=== PATIENT | female | born 1945 | race Caucasian/White ===

== ENCOUNTER → 2021-02-06 | Outpatient (CLI) | payer MEDICARE | END | disposition home or self-care (01) | LOC: LAB SHORT 13:50 | DX: R30.0 Dysuria (principal) | CPT/HCPCS: 87086 ==

== ENCOUNTER 2021-03-14 20:08 | Inpatient (IN) | payer MEDICARE ==
[~2021-03-14] VITALS: Ht 149.9 cm; Wt 51.9 kg
[2021-03-14 20:43] LABS: PCO2 Arterial 60.4 mmHg (35-45); PO2 Arterial 494 mmHg (80-100); pH Blood Arterial 6.82 (7.35-7.45)
[2021-03-14 20:43] LABS: Hematocrit 33.5 % (33.0-51.0); Hemoglobin 9.5 g/dL (11.5-16.0); Mean Corpuscular HGB 30.1 pg (26.0-34.0); Mean Corpuscular HGB Conc 28.4 g/dL (31.5-36.5); Mean Corpuscular Volume 106 fL (80-100); Mean Platelet Volume 11.1 fL (9.1-12.4); Platelet Count 168 K/mm3 (150-400); RDW Coefficient Variation 14.1 % (11.7-14.2); RDW Standard Deviation 55.2 fL (35.1-46.3); Red Blood Cell Count 3.16 M/mm3 (3.80-5.20); White Blood Cell Count 9.13 K/mm3 (4.00-11.30)
[2021-03-14] MEDS ORDERED: LOSARTAN POTASS25 M2 PO (20:56)
[2021-03-14] MEDS ORDERED: VERAPAMIL ER120 M1 PO (20:56)
[2021-03-14] MEDS ORDERED: SPIRONOLACTONE25 MG PO (20:57)
[2021-03-14] MEDS ORDERED: KLOR-CON 1010 ME3 PO (20:57)
[2021-03-14] MEDS ORDERED: ZOLOFT50 MG PO (20:57)
[2021-03-14] MEDS ORDERED: Ventolin/Prove6.7 GM INH (20:57)
[2021-03-14] MEDS ORDERED: XARELTO20 M1 PO (20:58)
[2021-03-14] MEDS ORDERED: FLUTICASONE-SA1 EAC9 INH (20:58)
[2021-03-14] MEDS ORDERED: EUTHYROX75 MC1 PO (20:58)
[2021-03-14 21:00] LABS: Alanine Aminotransfer (ALT/SGP 55 U/L (12-78); Albumin, Blood 2.5 g/dL (3.4-5.0); Alk Phos 74 U/L (50-136); Anion Gap 20 mmol/L (6-16); Aspartate Aminotrans (AST/SGOT 54 U/L (12-37); Bilirubin, Total 0.3 mg/dL (0.1-1.0); Blood Urea Nitrogen 17 mg/dL (8-24); Bun/Creatinine Ratio 20.6 (12.0-20.0); CO2, Blood 16 mmol/L (21-32); Chloride, Blood 102 mmol/L (98-108); Creatinine, Blood 0.83 mg/dL (0.40-1.00); Globulin, Blood 2.5 g/dL (2.2-4.0); Glomerular Filtration Rate >60 (60-); Glucose, Blood 349 mg/dL (70-99); Potassium, Blood 4.4 mmol/L (3.5-5.5); Sodium, Blood 138 mmol/L (136-145); Troponin I 0.027 ng/mL (0.000-0.040)
[2021-03-14 21:03] LABS: BAND PERCENT MAN 5 % (0-8); BASOPHILS PERCENT MAN 0 % (0-2); EOSINOPHILS ABSOLUTE MAN 0.18 K/mm3 (0.00-0.68); EOSINOPHILS PERCENT MAN 2 % (0-6); LYMPHOCYTES % ATYPICAL MANUAL 4 % (0-0); LYMPHOCYTES ABSOLUTE MAN 3.65 K/mm3 (0.84-5.20); LYMPHOCYTES PERCENT MAN 36 % (21-46); METAMYELOCYTE ABSOLUTE MAN 0.45 K/mm3 (0.00-0.00); METAMYELOCYTE PERCENT MAN 5 % (0-0); MONOCYTES ABSOLUTE MAN 0.18 K/mm3 (0.16-1.47); MONOCYTES PERCENT MAN 2 % (4-13); MYELOCYTE ABSOLUTE MAN 0.45 K/mm3 (0.00-0.00); MYELOCYTE PERCENT MAN 5 % (0-0); NEUTROPHILS ABSOLUTE MAN 4.19 K/mm3 (1.96-9.15); SEG NEUTROPHILS PERCENT MAN 41 % (41-73); TOTAL CELLS COUNTED 100
[2021-03-14 21:42] LABS: SARS-Cov-2 (COVID-19) PCR, MMC NEGATIVE (NEGATIVE)
[2021-03-14 21:56] LABS: Free Thyroxine 0.61 ng/dL (0.70-1.60)
[2021-03-14 22:30] LABS: C-REACTIVE PROTEIN, EXT RANGE <0.290 mg/dL (0.000-0.300)
[2021-03-14 23:59] LABS: PCO2 Arterial 47.6 mmHg (35-45); PO2 Arterial 203 mmHg (80-100)
[2021-03-15 02:38] LABS: Mean Corpuscular HGB 30.1 pg (26.0-34.0); Mean Corpuscular HGB Conc 29.7 g/dL (31.5-36.5); Mean Platelet Volume 10.2 fL (9.1-12.4); NRBC ABSOLUTE 0.02 K/mm3 (0.00-0.02); NRBC Auto 0.1 /100 WBC (0.0-0.2); Platelet Count 125 K/mm3 (150-400); RDW Coefficient Variation 14.4 % (11.7-14.2); RDW Standard Deviation 52.2 fL (35.1-46.3); Red Blood Cell Count 1.53 M/mm3 (3.80-5.20); White Blood Cell Count 14.25 K/mm3 (4.00-11.30)
[2021-03-15 02:40] LABS: Base Excess Venous -8.7 mmol/L; Bicarbonate Venous 17.9 mmol/L (24.0-30.0); PCO2 Venous 50.6 mmHg (38-42); PO2 Venous 86.9 mmHg (38-42); pH Blood Venous 7.19 (7.34-7.37)
[2021-03-15 02:44] LABS: Mean Corpuscular Volume 101 fL (80-100)
[2021-03-15 02:47] LABS: Hematocrit 15.5 % (33.0-51.0); Hemoglobin 4.6 g/dL (11.5-16.0)
[2021-03-15 02:56] LABS: Magnesium, Blood 1.9 mg/dL (1.6-2.4); Troponin I 0.179 ng/mL (0.000-0.040)
[2021-03-15 03:16] LABS: Albumin, Blood 1.3 g/dL (3.4-5.0); Bilirubin, Total 0.3 mg/dL (0.1-1.0); Bun/Creatinine Ratio 17.8 (12.0-20.0); Creatinine, Blood 1.01 mg/dL (0.40-1.00); Globulin, Blood 1.3 g/dL (2.2-4.0); Phosphorus, Blood 4.4 mg/dL (2.5-4.9); Potassium, Blood 3.9 mmol/L (3.5-5.5)
[2021-03-15 03:16] LABS: Base Excess Venous -7.1 mmol/L; Bicarbonate Venous 18.8 mmol/L (24.0-30.0); PCO2 Venous 47.1 mmHg (38-42); PO2 Venous 36.7 mmHg (38-42)
[2021-03-15 03:17] LABS: pH Blood Venous 7.24 (7.34-7.37)
[2021-03-15 03:43] LABS: BAND PERCENT MAN 15 % (0-8); BASOPHILS PERCENT MAN 0 % (0-2); EOSINOPHILS PERCENT MAN 0 % (0-6); LYMPHOCYTES ABSOLUTE MAN 0.42 K/mm3 (0.84-5.20); LYMPHOCYTES PERCENT MAN 3 % (21-46); MONOCYTES ABSOLUTE MAN 0.57 K/mm3 (0.16-1.47); MONOCYTES PERCENT MAN 4 % (4-13); MYELOCYTE ABSOLUTE MAN 0.28 K/mm3 (0.00-0.00); MYELOCYTE PERCENT MAN 2 % (0-0); NEUTROPHILS ABSOLUTE MAN 12.96 K/mm3 (1.96-9.15); SEG NEUTROPHILS PERCENT MAN 76 % (41-73); TOTAL CELLS COUNTED 100
[2021-03-15 03:59] LABS: Calcium, Blood 5.3 mg/dL (8.5-10.1); Total Protein, Blood 2.6 g/dL (6.4-8.2)
--- NOTE | 2021-03-15 05:42 | NUR ---
SUMMARY: PT ARRIVED TO UNIT AT 2340, SHE WAS UNRESPONSIVE, INTUBATED, PLACED ON THE VENTILATOR AC 24/320/5/45%. EFFORTS TO GET A BLOOD PRESSURE OR SPO2 READING WERE UNSUCCESSFUL. PT ON TODD-SYNEPHRINE @ 300MCG/MIN, ADDED VASOPRESSIN @ 0.04 U/MIN, THEN ADDED LEVOPHED @ 6MCG/MIN-TITRATING UP TO 20MCG/MIN. NAHCO3 @ 150 ML/HR, DEEPAK HGGR APPLIED TO PATIENT CORE TEMP READING AT 93.5, SINUS TACH, PT'S BROTHER ARRIVED, AWARE OF THE SITUATION, PT BEGAN AROUSING AND NODDING TO STAFF, MEDICATED FOR PAIN. PROPOFOL GTT STARTED FOR COMFORT, 0130-PT'S EYES NOTED TO BE DILATED AND UNRESPONSIVE TO LIGHT. PROPOFOL GTT TURNED OFF. UNABLE TO OBTAIN BP OR BIOX, STILL. 0200-PT BEGINS RESPONDING TO VOICE. 0300-LABS OBTAINED, RESULTS QUESTIONED. PT REDRAWN. NOTIFIED OF RESULTS, ORDERS RECEIVED. 2L NS STARTED, 2U PRBC'S STARTED, PT WITH A BLOOD PRESSURE APPROX. 0400. PT CONTINUES WITH TEMPERATURE RISING, BLOOD PRESSURES, BEGINNING TO MOVE SELF A BIT. WRISTS RESTRAINED FOR SAFETY OF TUBES,LINES. BROTHER REMAINS IN ROOM. CURRENTLY, VENT SETTINGS UNCHANGED, NEOSYNEPHRINE @ 200MCG/MIN, LEVO @ 20 MCG/MIN, VASO @ 0.04 U/MIN, PROPOFOL @ 10 MCG/KG/MIN, 2ND UNIT OF BLOOD TRANSFUSING, WILL RESTART THE 2L NS BOLUSES WHEN BLOOD FINISHED. PT'S ABDOMEN HAS BEEN THE SIZE OF A SMALL BASKETBALL FROM THE START OF ADMISSION, IT HAS CONTINUED T/O SHIFT TO REMAIN HARD AND TIGHT. PHONE CALL WAS MADE TO ABOUT THE INCREASING SIZE OF THE ABDOMEN, ORDER RECEIVED FOR 1V ABD. WILL CONTINUE TO ASSESS.
--- NOTE | 2021-03-15 07:53 | NUR ---
PTS' AT BEDSIDE, INFORMED BY PT'S THAT PT IS IN PAIN. PT WIDE AWAKE AND GRIMACING. NODS HEAD YES TO PAIN. PRIMARY RN INFORMED. PROPOFOL INCREASED FROM 10MCG TO 30 MAP 85. FENT 50MCG GIVEN.
[2021-03-15 09:49] LABS: PCO2 Arterial 40.6 mmHg (35-45); PO2 Arterial 187 mmHg (80-100); pH Blood Arterial 7.28 (7.35-7.45)
[2021-03-15 10:25] LABS: BASOPHILS ABSOLUTE AUTO 0.12 K/mm3 (0.00-0.23); BASOPHILS PERCENT AUTO 0 % (0-2); EOSINOPHILS ABSOLUTE AUTO 0.02 K/mm3 (0.00-0.68); EOSINOPHILS PERCENT AUTO 0 % (0-6); Hematocrit 26.5 % (33.0-51.0); Hemoglobin 8.7 g/dL (11.5-16.0); IMMATURE GRAN PERCENT AUTO 7 % (0-1); LYMPHOCYTES ABSOLUTE AUTO 1.85 K/mm3 (0.84-5.20); LYMPHOCYTES PERCENT AUTO 6 % (21-46); MONOCYTES ABSOLUTE AUTO 1.51 K/mm3 (0.16-1.47); MONOCYTES PERCENT AUTO 5 % (4-13); Mean Corpuscular HGB Conc 32.8 g/dL (31.5-36.5); Mean Corpuscular Volume 94 fL (80-100); Mean Platelet Volume 11.1 fL (9.1-12.4); NEUTROPHILS ABSOLUTE AUTO 24.03 K/mm3 (1.96-9.15); NEUTROPHILS PERCENT AUTO 81 % (41-73); NRBC ABSOLUTE 0.16 K/mm3 (0.00-0.02); NRBC Auto 0.5 /100 WBC (0.0-0.2); Platelet Count 108 K/mm3 (150-400); RDW Coefficient Variation 14.7 % (11.7-14.2); RDW Standard Deviation 50.5 fL (35.1-46.3); Red Blood Cell Count 2.81 M/mm3 (3.80-5.20); White Blood Cell Count 29.73 K/mm3 (4.00-11.30)
[2021-03-15 10:29] LABS: BAND PERCENT MAN 11 % (0-8); BASOPHILS PERCENT MAN 0 % (0-2); EOSINOPHILS PERCENT MAN 0 % (0-6); LYMPHOCYTES ABSOLUTE MAN 1.48 K/mm3 (0.84-5.20); LYMPHOCYTES PERCENT MAN 5 % (21-46); METAMYELOCYTE ABSOLUTE MAN 0.59 K/mm3 (0.00-0.00); METAMYELOCYTE PERCENT MAN 2 % (0-0); MONOCYTES ABSOLUTE MAN 1.48 K/mm3 (0.16-1.47); MONOCYTES PERCENT MAN 5 % (4-13); MYELOCYTE ABSOLUTE MAN 2.08 K/mm3 (0.00-0.00); MYELOCYTE PERCENT MAN 7 % (0-0); NEUTROPHILS ABSOLUTE MAN 24.08 K/mm3 (1.96-9.15); SEG NEUTROPHILS PERCENT MAN 70 % (41-73); TOTAL CELLS COUNTED 100
[2021-03-15 10:32] LABS: Magnesium, Blood 1.8 mg/dL (1.6-2.4); Troponin I 0.351 ng/mL (0.000-0.040)
[2021-03-15 10:36] LABS: Albumin, Blood 1.4 g/dL (3.4-5.0); Albumin/Globulin Ratio 0.9 (0.8-1.8); Bilirubin, Total 0.6 mg/dL (0.1-1.0); Bun/Creatinine Ratio 16.4 (12.0-20.0); Calcium, Blood 6.9 mg/dL (8.5-10.1); Creatinine, Blood 1.22 mg/dL (0.40-1.00); Globulin, Blood 1.6 g/dL (2.2-4.0); Potassium, Blood 3.7 mmol/L (3.5-5.5)
[2021-03-15 10:49] LABS: PCO2 Arterial 41.5 mmHg (35-45); PO2 Arterial 165 mmHg (80-100)
[2021-03-15 10:50] LABS: pH Blood Arterial 7.26 (7.35-7.45)
[2021-03-15 10:58] LABS: International Normalized Ratio 2.3; Prothrombin Time Results 23.7 Sec (9.7-11.5)
--- NOTE | 2021-03-15 11:12 | NUR ---
pt critical kps score is 20%. pt on multipressors, blood products, and and on ventilatior support. intesivist, interventioonal radiologist and nursing at bedside. plan is to take to laboratory aide. Pt lives with hes brother her son is here [facility]. Careful discussion with son her son regarding levels of care. Her son has had brain surgery and is fatigued and distraugh. His wishes are to combination machine tender her a chance and not to withhold care. Supportive discussion on not discriminated on age and respecting wishes. We also discussed prognosis and suffering. We settled on try the intervention and some care marylu if she has a lethal rythm no cpr and make her comfortable. pt son assited with getting a hotel room and support. prognosis very poor pt will need expensive correction care if she survives event will update health care marketing manager team.
--- NOTE | 2021-03-15 11:55 | NUR ---
Spiritual care visit conducted. Patient's son, Sandeep, is bedside and talks about his own brain surgery and his struggle to remember and process information, he also explains about the family unit complications and his desire to not cause undue harm or suffering to his mother. He wants all reasonable efforts made to help his mother and then to "let her go" if there is little or no hope of recovery. Sandeep talks about their belief in God but admits that the patient is not a very caodaism person. I reinforce helpful attitudes and practices and provide companionship, therapeutic listening and prayer. I will continue to remain available to patient and family.
[2021-03-15 12:37] LABS: Calcium, Blood 7.1 mg/dL (8.5-10.1); Magnesium, Blood 1.8 mg/dL (1.6-2.4)
[2021-03-15 15:08] LABS: PCO2 Arterial 48.8 mmHg (35-45); PO2 Arterial 128 mmHg (80-100); pH Blood Arterial 7.31 (7.35-7.45)
--- NOTE | 2021-03-15 15:43 | NUR ---
RESOURCE MANAGEMENT SPECIALIST/GENERAL MERCHANDISE MANAGER REFERRAL - ADMIT: 03/14/21 DISCHARGE: DX: ACUTE RESPIRATORY FAILURE CC: KWILCOX CALLUM CALL: RESIDENCE: HOME CAREGIVER: LUCIEN DUBON ([place]) HOME PHONE: DX: VALVE DISEASE, COPD, AFIB, PULMONARY EMPHYSEMA, SEE LIST DME: NONE CCM: NONE HOME HEALTH: NONE SUMMARY: 03/15/21- PER CHART REVIEW WITH DR. WARD, NO D/C PLAN. PT HAD CENTRAL LINE PLACED YESTERDAY. PT CAME IN RESPONSIVE AND INTUBATED ON VENT. PALLITIVE CARE SPOKE WITH PT'S SON, WHO IS HERE FROM [place]. DISCUSSED CARE OPTIONS AND SON WOULD LIKE TO GIVE HER A CHANCE AND TO CONTINUE CARE BUT NOT TO CAUSE UNDUE HARM OR SUFFERING. SON WAS INFORMED THAT PROGNOSIS IS POOR. ADMIT: 03/14/21
[2021-03-15 15:45] LABS: Albumin, Blood 1.7 g/dL (3.4-5.0); Albumin/Globulin Ratio 0.9 (0.8-1.8); Bilirubin, Total 0.8 mg/dL (0.1-1.0); Calcium, Blood 6.1 mg/dL (8.5-10.1); Creatinine, Blood 1.05 mg/dL (0.40-1.00); Globulin, Blood 1.9 g/dL (2.2-4.0); Total Protein, Blood 3.6 g/dL (6.4-8.2); Troponin I 0.377 ng/mL (0.000-0.040)
[2021-03-15 15:52] LABS: Hemoglobin 10.4 g/dL (11.5-16.0); Mean Corpuscular HGB 29.5 pg (26.0-34.0); Mean Corpuscular HGB Conc 33.5 g/dL (31.5-36.5); Mean Platelet Volume 10.8 fL (9.1-12.4); NRBC ABSOLUTE 0.02 K/mm3 (0.00-0.02); NRBC Auto 0.2 /100 WBC (0.0-0.2); Platelet Count 54 K/mm3 (150-400); RDW Coefficient Variation 15.2 % (11.7-14.2); RDW Standard Deviation 48.3 fL (35.1-46.3); Red Blood Cell Count 3.53 M/mm3 (3.80-5.20)
[2021-03-15 15:54] LABS: Mean Corpuscular Volume 88 fL (80-100)
[2021-03-15 16:18] LABS: BAND PERCENT MAN 28 % (0-8); BASOPHILS PERCENT MAN 0 % (0-2); EOSINOPHILS PERCENT MAN 0 % (0-6); LYMPHOCYTES PERCENT MAN 7 % (21-46); METAMYELOCYTE PERCENT MAN 19 % (0-0); MONOCYTES PERCENT MAN 1 % (4-13); MYELOCYTE PERCENT MAN 3 % (0-0); SEG NEUTROPHILS PERCENT MAN 42 % (41-73); TOTAL CELLS COUNTED 100
--- NOTE | 2021-03-15 18:35 | NUR ---
ASSUMPTION OF CARE AND SHIFT SUMMARY ASSUMED CARE OF PT @ APPROX 0650, PT INTUBATED AND ON LOW SEDATION. PUPILS DILATED AND FIXED, LUNG SOUNDS COARSE, UNABLE TO OBTAIN SPO2, ATTEMPTED ON ALL EXTREMETIES AND FOREHEAD, FACIAL EDEMA NOTED WITH SIGNIFICANTLY SWOLLEN TONGUE- PROTRUDING FROM MOUTH. SCLERAL EDEMA NOTED. PULSES BY DOPPLER, LEVOPHED, VASOPRESSIN AND NEOSYNEPHRINE INFUSING TO MAINTAIN MAPS- SEE FLOWSHEET FOR ASSUMPTION OF CARE RATES. AT APPROX 0800, LEAKING NOTED FROM CENTRAL LINE SITE, DRESSING TAKEN DOWN AND CATHETER OUT APPROX 6cm. ALL GTT'S STOPPED, LEVO RAN VIA PERIPHERAL IV, DR FARAH NOTIFIED AND EN ROUTE, ED RN'S TO ROOM FOR IO PLACEMENT. UNABLE TO GET NON-INVASIVE BLOOD PRESSURES. DR FARAH TO ROOM @ APPROX 0845, R GROIN CL AND ARTLINE PLACED, PT HYPOTENSIVE, PRESSORS TITRATED TO MAINTAIN MAPS, 1MG EPI PUSH ORDERED AND ADMINISTERED @ 0924, EPI GTT ORDERED. ABG COMPLETED. INTRA ABDOMINAL PRESSURE OF 30, DR FARAH COSULTED SURGERY. AT APPROX 0930, RADIOLOGY CT READING RESULTED, DR FARAH CONSULTED DR MARQUES WITH IR, MASS TRANSFUSION PROTOCOL INITIATED, SEE TRANSFUSION FLOWSHEET. PT COUGHING VENT, 20mg ROCURONIUM ADMINISTERED @ 1002 [address] FARAH AND NIMBEX ORDERED. PT TO EMPLOYEE COUNSELOR @ APPROX 1115. PT RETURNED FROM EMPLOYEE COUNSELOR @ APPROX 1500. TEMP PROBE MOLINA READING 91 DEGREES, AZIZA HUGGER PLACED ON PT. REPEAT LABS COMPLETED, SEE NEW ORDERS FOR CALCIUM GLUCONATE, POTASSIUM CHLORIDE, LASIX. REPEAT ABD PRESSURE OF 26. DR FARAH NOTIFIED OF MISSED ZOSYN DOSE, NO NEW ORDERS. PTS CURRENT CONDITION: PT REMAINS INTUBATED, SEDATED AND PARALYZED, TOF 1/4 WITH NIMBEX @ 1. LS COARSE AND WHEEZY, HOUR LONG NEB ORDERED BY DR FARAH. PT WITH LOW TIDAL VOLUMES, DR FARAH AWARE. MONITOR SHOWS SINUS RHYTHM WITH HR 90'S-120'S, ARTLINE SHOWING SBP'S 90'S-120, WITH MAPS> 70, LEVO GTT @ 8mcg/min, ALL OTHER PRESSORS ON SB. PT REMAINS SEVERELY MOTTLED TO BLE WITH SOME MOTTLING NOTED TO UPPER CHEST AND BUE, FEET PURPLE WITH VERY POOR CAP REFILL. OG IN PLACE TO LIS, VERY LITTLE OUTPUT. STOMACH VERY RIGID. MOLINA IN PLACE WITH ADQUATE OUTPUT.
--- NOTE | 2021-03-15 19:45 | NUR ---
Assumed care. Bedside report recieved. Pt continues on ventilator, settings: ac/pc rr28/pi30/peep5/fi02 45%. Pt is sedated and paralyzed. IV pumps are as follows: Nimbex 1 mcg/kg/min, levophed 12 mcg/min, propofol 20 mcg/kg/min, sodium bi-carb 150 ml/hr, potassium 50 ml/hr. Arterial line in place, right femoral access, line zeroed at beginning of shift. OG tube in place, continuous suction applied. Temp luong in place, scant yellow output noted. Central line in place, left subclavian, offgoing nurse reported that it cannot be used anymore due to the line coming out several centimeters. No acute needs noted at this time, will continue to monitor, see shift assessment.
[2021-03-15 20:08] LABS: Hematocrit 23.3 % (33.0-51.0); Hemoglobin 8.1 g/dL (11.5-16.0)
[2021-03-15 20:23] LABS: Magnesium, Blood 1.7 mg/dL (1.6-2.4); Phosphorus, Blood 6.4 mg/dL (2.5-4.9)
[2021-03-15 21:24] LABS: PCO2 Arterial 39.7 mmHg (35-45); PO2 Arterial 106 mmHg (80-100); pH Blood Arterial 7.42 (7.35-7.45)
[2021-03-15 23:34] LABS: Source, Urine Catheter
[2021-03-15 23:36] LABS: Bilirubin, Urine Neg (Neg); Blood, Urine 5+ (Neg); Glucose Qualitative, Urine 1+ (Neg); Ketones, Urine Neg (Neg); Leukocyte Esterase, Urine Neg (Neg); Nitrite, Urine Neg (Neg); Protein, Urine 2+ (Neg); Urobilinogen, Urine NORM (Normal)
[2021-03-15 23:37] LABS: Appearance, Urine Hazy (Clear); Color, Urine Yellow (P-Yellow)
[2021-03-15 23:44] LABS: Amorphous Mod (0-Heavy); Bacteria Few /hpf; Red Blood Cells, Urine TNTC /hpf (0-2); Squamous Epithelial Cells Rare /hpf (Few); White Blood Cells, Urine Rare /hpf (0-5)
[2021-03-16 00:59] LABS: Hematocrit 26.4 % (33.0-51.0); Hemoglobin 9.3 g/dL (11.5-16.0)
--- NOTE | 2021-03-16 01:06 | NUR ---
PT CLEANED AND TURNED, PARTIAL LINEN CHANGE. FEMORAL LINE DRESSING CHANGED, CLEANED WITH CHLORAPREP, OPSITE REPLACED. PT CONTINUES WITH MASSIVE FACIAL SWELLING AND LARGE, TIGHT ABDOMEN. LOWER EXTREMITIES WITH CAP REFILL AND PULSES PALPABLE. TEMP NOW 100.6, BP CONTINUES LABILE, VASOPRESSIN RESTARTED @ 0.04U/MIN. WEIGHT OBTAINED, INCREASE OF 14 KG IN PAST 24 HOURS.
[2021-03-16 06:24] LABS: Hemoglobin 7.7 g/dL (11.5-16.0); Mean Corpuscular HGB 29.8 pg (26.0-34.0); Mean Corpuscular Volume 85 fL (80-100); Mean Platelet Volume 10.4 fL (9.1-12.4); NRBC Auto 1.9 /100 WBC (0.0-0.2); Platelet Count 95 K/mm3 (150-400); RDW Coefficient Variation 15.1 % (11.7-14.2); RDW Standard Deviation 46.5 fL (35.1-46.3); Red Blood Cell Count 2.58 M/mm3 (3.80-5.20); White Blood Cell Count 10.44 K/mm3 (4.00-11.30)
--- NOTE | 2021-03-16 06:44 | NUR ---
SHIFT SUMMARY. PT CONTINUES ON VENTILATOR, SETTINGS: AC/PC RR28/PI30/PEEP5/[id number]%. PT SEDATED AND PARALYZED. PUMPS SETTINGS FOLLOWS: LEVOPHED 20 MCG/MIN, PROPOFOL 20 MCG/KG/MIN, VASOPRESSIN 0.04 UNITS/MIN, NIMBEX 1.5 MCG/MIN, BICARB 150 ML/HR, NS 10 ML/HR. ARTERIAL BP LINE IN PLACE, RIGHT FEMORAL. BIZ MONITOR ON, LAST READ 36. MOLINA CATHETER IN PLACE, OUTPUT LESS THAN 100 DURING SHIFT, DR FARAH NOTIFIED. INTRA ABDOMINAL PRESSURE 38. CRITICAL LAB NOTIFICATION TAKE FOR LACTIC ACID AT 9.4. WILL NOTIFY DR FARAH OF ABDOMINAL PRESSURE AND LAB REPORT. WILL CONTINUE TO MONITOR UNTIL REPORT GIVEN TO ONCOMING RN.
[2021-03-16 07:06] LABS: PCO2 Arterial 35.8 mmHg (35-45); PO2 Arterial 121 mmHg (80-100); pH Blood Arterial 7.44 (7.35-7.45)
[2021-03-16 07:13] LABS: Albumin, Blood 1.4 g/dL (3.4-5.0); Albumin/Globulin Ratio 0.8 (0.8-1.8); Bilirubin, Total 0.9 mg/dL (0.1-1.0); Bun/Creatinine Ratio 14.7 (12.0-20.0); Calcium, Blood 7.1 mg/dL (8.5-10.1); Creatinine, Blood 1.77 mg/dL (0.40-1.00); Globulin, Blood 1.8 g/dL (2.2-4.0); Potassium, Blood 4.9 mmol/L (3.5-5.5); Total Protein, Blood 3.2 g/dL (6.4-8.2)
[2021-03-16 07:14] LABS: BAND PERCENT MAN 19 % (0-8); BASOPHILS PERCENT MAN 0 % (0-2); EOSINOPHILS PERCENT MAN 0 % (0-6); LYMPHOCYTES ABSOLUTE MAN 0.83 K/mm3 (0.84-5.20); LYMPHOCYTES PERCENT MAN 8 % (21-46); MONOCYTES ABSOLUTE MAN 0.52 K/mm3 (0.16-1.47); MONOCYTES PERCENT MAN 5 % (4-13); NEUTROPHILS ABSOLUTE MAN 9.08 K/mm3 (1.96-9.15); SEG NEUTROPHILS PERCENT MAN 68 % (41-73); TOTAL CELLS COUNTED 100
--- NOTE | 2021-03-16 09:10 | NUR ---
ASSUMED CARE BEDSIDE REPORT FROM YONATAN/CONRADO MCKEE. PT INTUBATED AND SEDATED. VENT SETTINGS AC/PC 28/30/5/45%. PROPOFOL GTT INFUSING. BIS MONITOR 40'S AT THIS TIME. NIMBEX GTT FOR VENT COMPLIANCE. TO4 0/4, RATE 28, OCCASIONAL PEAK PRESSURES. WILL TITRATE NIMBEX DOWN. NO COUGH/GAG/SWALLOW REFLEX. PUPILS 3 MM, SLUGGISH. SCLERA EDEMA NOTED. SIGNIFICANT SWELLING TO FACE, LIPS, TONGUE PROTRUDING FROM MOUTH. LUNGS COARSE c EXP WHEEZE. ABD FIRM, VERY DISTENDED. NO BT. IAP 30 MMHG THIS AM. PT c SIGNIFICANT MOTTLING TO LOWER EXT, ABD. PULSES BY DOPPLER ONLY. ART LINE AND CVC TO RIGHT GROIN, OOZING. LEVO AND VASO FOR MAP>65. BICARB GTT. CVC TO LEFT SUBCLAVIAN REMOVED, DRESSED. IO TO RLE REMOVED. ST ON MONITOR, RATE 120'S. WILL CONTINUE TO MONITOR.
--- NOTE | 2021-03-16 10:02 | NUR ---
Ethics consultation service requested. Medical history, emerging clinical developments, and case specific detail reviewed with osborn stakeholders. The principal is suffering from hemorrhagic shock, acute respiratory failure with hypoxia, and is suspected to have active intraperitoneal bleeding. A concern was expressed as to whether or not it would be ethically or legally permissible, to proceed with additional surgical intervention in an attempt to resolve the hemorrhage, given the principals unfortunate medical condition, bleak trajectory and improbability of recovery. The principals son and identified proxy, has reported that he would like to forgo unreasonable, disproportionate and harmful treatments that lack efficaciousness, but would prefer to allow measures of care that could prove clinically advantageous. If the principal, having been sufficiently educated to the prospective risk factors and possible benefits, no matter how benign or significant, in agreement with the salesperson surgical appliances wants to pursue aggressive operative treatment as a last hope measure, may do so without moral or tribunal fault. Thank you for this consult. Jovanny Bernal Th.D.
--- NOTE | 2021-03-16 10:30 | NUR ---
COMFORT CARE DR PERRIN AT BEDSIDE TO DISCUSS SX OPTIONS c SON. SON PLANS TO PROCEED c COMFORT CARE WHEN REST OF FAMILY GETS HERE.
--- NOTE | 2021-03-16 11:55 | NUR ---
Spiritual care visit conducted. Upon the patient's son's request, I visit with him, Sandeep, in patient's rm. I discuss with him his decision to change patient's code status to comfort measures only and then encourage and support him in his (and the family's) decision. I conducted a life review of patient and Sandeep and provide therapeutic listening, a calming presence and anticipatory grief support. Sandeep responds well and shows signs of being comforted.
--- NOTE | 2021-03-16 14:39 | NUR ---
TOElo DRIPS PLACED ON STANDBY. EXTUBATED AT 1356. FAMILY AT BEDSIDE. TOD 1429. NOTIFIED DONOR LINE AND WILL CALL [facility]. ALL BELONGINGS SENT HOME c FAMILY.
== END 2021-03-16 14:29 | DRG 853 ==
LOC: ER 20:08 → ICUW 23:19
PROVIDERS: Emergency Medicine; Internal Medicine Pulmonary Disease; ADMIT Internal Medicine
PROC: 0BH18EZ Insertion of Endotracheal Airway into Trachea, Via Natural or Artificial Opening Endoscopic (ICD-10-PCS; 2021-03-14)
PROC: 30233L1 Transfusion of Nonautologous Fresh Plasma into Peripheral Vein, Percutaneous Approach (ICD-10-PCS; 2021-03-14)
PROC: 30233N1 Transfusion of Nonautologous Red Blood Cells into Peripheral Vein, Percutaneous Approach (ICD-10-PCS; 2021-03-14)
PROC: 30233M1 Transfusion of Nonautologous Plasma Cryoprecipitate into Peripheral Vein, Percutaneous Approach (ICD-10-PCS; 2021-03-14)
PROC: 30233K1 Transfusion of Nonautologous Frozen Plasma into Peripheral Vein, Percutaneous Approach (ICD-10-PCS; 2021-03-14)
PROC: 3E043XZ Introduction of Vasopressor into Central Vein, Percutaneous Approach (ICD-10-PCS; 2021-03-14)
PROC: 5A1945Z Respiratory Ventilation, 24-96 Consecutive Hours (ICD-10-PCS; 2021-03-14)
PROC: 05H633Z Insertion of Infusion Device into Left Subclavian Vein, Percutaneous Approach (ICD-10-PCS; 2021-03-14)
PROC: 04LB3DZ Occlusion of Inferior Mesenteric Artery with Intraluminal Device, Percutaneous Approach (ICD-10-PCS; principal; 2021-03-15)
PROC: B4151ZZ Fluoroscopy of Inferior Mesenteric Artery using Low Osmolar Contrast (ICD-10-PCS; 2021-03-15)
PROC: B4141ZZ Fluoroscopy of Superior Mesenteric Artery using Low Osmolar Contrast (ICD-10-PCS; 2021-03-15)
PROC: 04HY32Z Insertion of Monitoring Device into Lower Artery, Percutaneous Approach (ICD-10-PCS; 2021-03-15)
PROC: 4A133B1 Monitoring of Arterial Pressure, Peripheral, Percutaneous Approach (ICD-10-PCS; 2021-03-15)
PROC: 4A133J1 Monitoring of Arterial Pulse, Peripheral, Percutaneous Approach (ICD-10-PCS; 2021-03-15)
PROC: 02HV33Z Insertion of Infusion Device into Superior Vena Cava, Percutaneous Approach (ICD-10-PCS; 2021-03-15)
DX: A41.9 Sepsis, unspecified organism (principal); E11.10 Type 2 diabetes mellitus with ketoacidosis without coma; K66.1 Hemoperitoneum; J96.01 Acute respiratory failure with hypoxia; R65.21 Severe sepsis with septic shock; E87.2 Acidosis; I47.1 Supraventricular tachycardia; R64 Cachexia; Z68.1 Body mass index [BMI] 19.9 or less, adult; I24.8 Other forms of acute ischemic heart disease; M79.A3 Nontraumatic compartment syndrome of abdomen; G93.49 Other encephalopathy; D62 Acute posthemorrhagic anemia; I10 Essential (primary) hypertension; Z51.5 Encounter for palliative care; E83.51 Hypocalcemia; Z66 Do not resuscitate; E86.0 Dehydration; Z20.822 Contact with and (suspected) exposure to COVID-19; J43.9 Emphysema, unspecified; R57.8 Other shock; Z79.51 Long term (current) use of inhaled steroids; Z88.6 Allergy status to analgesic agent; Z88.5 Allergy status to narcotic agent; Z79.899 Other long term (current) drug therapy; Z79.01 Long term (current) use of anticoagulants
CPT/HCPCS: 31500; 36246; 36415; 36430; 36556; 36600; 36620; 37244; 51702; 70450; 71045; 71260; 74018; 74177; 75726; 80053; 81001; 82310; 82330; 82803; 82947; 83605; 83735; 83880; 84100; 84439; 84443; 84484; 85014; 85018; 85025; 85384; 85610; 85651; 85730; 86140; 86850; 86900; 86901; 86920; 86923; 87040; 87070; 87077; 87186; 87205; 93005; 93010; 94002; 94003; 94640; 96365-59; 96366-59; 96375-59; 99285-25; A9270; C1751; C1769; C1887; C1894; C9113; J0171; J0456; J0610; J1720; J1815; J1940; J2060; J2250; J2370; J2543; J2704; J3010; J3370; J3480; J7030; J7040; J7050; J7060; J7070; P9012; P9016; P9035; P9059; Q9967; U0004